=== PATIENT | male | born 1980 | race Caucasian/White ===

== ENCOUNTER 2018-03-02 07:59 | Emergency (ER) | payer MEDICAID ==
[~2018-03-02] VITALS: Ht 175.3 cm; Wt 99.8 kg
[2018-03-02 08:04] VITALS: BP_SYST 110
--- NOTE | 2018-03-02 08:09 | NUR ---
Pt placed to ER bed 08.
--- NOTE | 2018-03-02 08:10 | NUR ---
Pt complains of right eye swelling and a bump to cheek bone. Pt states he noticed a bump about three days ago and after he showered, "thick white drainage came out and then it changed to clear liquid." Per patient, the next day eye was swollen and difficult to open. Pt denies N/V or fever. No other injuries/complaints per patient or noted.
--- NOTE | 2018-03-02 08:16 | NUR ---
ER Dr. Botello at bedside examining patient.
[2018-03-02 08:35] VITALS: BP_SYST 110
--- NOTE | 2018-03-02 08:35 | NUR ---
Patient given written and verbal discharge instructions and verbalizes understanding. ER MD discussed with patient the results and treatment provided. Patient in stable condition. ID arm band removed. Rx of Bactrim given. Patient educated on pain management and to follow up with PMD. Pain Scale 0. Opportunity for questions provided and answered. Medication side effect fact sheet provided.
== END 2018-03-02 08:35 | disposition home or self-care (01) ==
LOC: SED 07:59
DX: H05.011 Cellulitis of right orbit (principal)
CPT/HCPCS: 99283

== ENCOUNTER 2022-05-13 09:14 | Inpatient (IN) | payer MEDICAID, OTHER ==
[~2022-05-13] VITALS: Ht 175.3 cm; Wt 98.0 kg
[2022-05-13 09:30] VITALS: BP_SYST 134
[2022-05-13] MEDS ORDERED: ONDANSETRON 4 MG ODT TAB PO ONE (10:30)
[2022-05-13 11:06] LABS: BASOPHILS # (AUTO) 0.1 K/uL (0.0-0.2); BASOPHILS % (AUTO) 0.2 % (0.0-2.0); HEMATOCRIT 50.4 % (36-54); LYMPHOCYTES # (AUTO) 1.4 K/uL (1.0-5.5); LYMPHOCYTES % (AUTO) 6.4 % (20.5-51.5); MEAN CORPUSCULAR HEMOGLOBIN 32 pg (27-31); MEAN CORPUSCULAR HGB CONC 36 % (32-36); MEAN CORPUSCULAR VOLUME 91 fL (79.0-98.0); MONOCYTES # (AUTO) 1.4 K/uL (0.0-1.0); MONOCYTES % (AUTO) 6.5 % (1.7-9.3); NEUTROPHILS # (AUTO) 18.7 K/uL (1.8-7.7); PLATELET COUNT (AUTO) 299 K/uL (130-430); RED BLOOD CELL COUNT(AUTO) 5.55 MIL/uL (4.2-6.2); RED CELL DISTRIBUTION WIDTH 13.8 % (9.0-15.0); WHITE BLOOD COUNT (AUTO) 21.5 K/uL (4.8-10.8)
[2022-05-13 11:33] LABS: CALCIUM 11.3 mg/dL (8.4-11.0); CREATININE 6.42 mg/dL (0.55-1.30); POTASSIUM 4.2 mmol/L (3.5-5.1)
[2022-05-13 11:49] LABS: ALBUMIN 6.3 g/dL (3.4-4.8); TOTAL BILIRUBIN 2.1 mg/dL (0.0-1.0)
[2022-05-13 12:05] LABS: NEUTROPHILS % (AUTO) 86.9 % (40.0-70.0)
[2022-05-13] MEDS ORDERED: NACL 0.9% 1,000 ML IV ONE (12:30)
[2022-05-13] MEDS ORDERED: ONDANSETRON HCL 4 MG/2 ML VIAL IVP ONE (12:45)
[2022-05-13] MEDS ORDERED: MAGNESIUM SULFATE 50 ML IV ONE (13:00)
[2022-05-13] MEDS ORDERED: HALOPERIDOL LACTATE 5 MG/ML VIAL IVP ONE (13:00)
[2022-05-13] MEDS ORDERED: FOLIC ACID 1 MG, THIAMINE HCL 100 MG, MAGNESIUM SULFATE 1 GM, MVI 10 ML in NACL 0.9% 1,... IV ONE (13:00)
[2022-05-13] MEDS ORDERED: PIPERACILLIN/TAZOBACTAM 2.25 GM in NS 50 ML IV ONE (13:00)
[2022-05-13] MEDS ORDERED: PIPERACILLIN/TAZOBACTAM 2.25 GM VIAL IV ONE (13:09)
[2022-05-13] MEDS ORDERED: FOLIC ACID 1 MG, MVI 10 ML in NACL 0.9% 1,000 ML IV ONE (13:15)
[2022-05-13] MEDS ORDERED: THIAMINE HCL 100 MG, MAGNESIUM SULFATE 1 GM in NS 100 ML IV ONE (13:15)
[2022-05-13 13:32] LABS: PHOSPHORUS 4.7 mg/dL (2.7-4.5)
[2022-05-13 13:35] LABS: ACETAMINOPHEN < 1 ug/mL (1-30); ALCOHOL, BLOOD < 3 mg/dL (<10)
[2022-05-13] MEDS ORDERED: MUPIROCIN 2% TOPICAL OINTMENT 22 GM NS PRN (15:00)
[2022-05-13] MEDS ORDERED: MORPHINE 2 MG/ML INJ. SYRINGE IVP PRN ×2 (15:00)
[2022-05-13] MEDS ORDERED: ACETAMINOPHEN 325 MG TABLET PO PRN (15:00)
[2022-05-13] MEDS ORDERED: DOCUSATE SODIUM 100 MG CAPSULE PO PRN (15:00)
[2022-05-13] MEDS ORDERED: POTASSIUM CHLORIDE 20 MEQ TAB.PRT.SR PO PRN (15:00)
[2022-05-13] MEDS ORDERED: MAGNESIUM SULFATE 50 ML IV PRN (15:00)
[2022-05-13] MEDS: NACL 0.9% 1,000 ML IV SCH ×2 (15:06→22:30)
[2022-05-13] MEDS: PIPERACILLIN/TAZO 2.25G/DEX-IS 50 ML IV SCH (18:00)
[2022-05-13 20:00] VITALS: BP_SYST 132
[2022-05-13 20:54] LABS: BILIRUBIN,URINE 1+ (NEGATIVE); BLOOD, URINE 3+ (NEGATIVE); CLARITY/URINE SL CLOUDY (CLEAR); COLOR,URINE YELLOW (YELLOW); GLUCOSE,URINE NEGATIVE (NEGATIVE); KETONES,URINE TRACE (NEGATIVE); LEUKOCYTE ESTERASE ,URINE NEGATIVE (NEGATIVE); NITRITE, URINE NEGATIVE (NEGATIVE); PH,URINE 5.5 (5.0-8.0); PROTEIN URINE 2+ (NEGATIVE); UROBILINOGEN,URINE 0.2 (0.2-1.0)
[2022-05-13 21:00] LABS: BARBITURATE, URINE NEGATIVE (NEG <=200); BENZODIAZEPINE, URINE NEGATIVE (NEG <=150); CANNABINOID, URINE POSITIVE (NEG <=50); COCAINE, URINE NEGATIVE (NEG <=150); METHAMPHETAMINES SCREEN,URINE NEGATIVE (NEG <=500); OPIATE, URINE NEGATIVE (NEG <=100); PHENCYCLIDINE SCREEN,URINE NEGATIVE (NEG <=25); UR TRICYCLIC ANTIDEPRESSANTS NEGATIVE (NEG <=300); URINE AMPHETAMINE NEGATIVE (NEG <=500); URINE METHADONE NEGATIVE (NEG <=200); URINE OXYCODONE SCREEN NEGATIVE (NEG <=100); URINE PROPOXYPHENE SCREEN NEGATIVE (NEG <=300)
[2022-05-13 21:11] LABS: BACTERIA,URINE RARE /HPF (None Seen); COARSE GRANULAR CASTS,URINE 0-10 /LPF (None Seen); HYALINE CASTS, URINE 0-10 /LPF (None Seen); MUCUS,URINE 1+ /LPF (None Seen)
[2022-05-13 21:12] LABS: CALCIUM OXALATE CRYSTALS,UR 0-10 /HPF (None Seen)
[2022-05-14] VITALS: BP_SYST 135
[2022-05-14] MEDS: PIPERACILLIN/TAZO 2.25G/DEX-IS 50 ML IV SCH ×4 (00:28→17:16)
[2022-05-14] MEDS: NACL 0.9% 1,000 ML IV SCH ×3 (06:33→22:30)
[2022-05-14 06:59] LABS: BASOPHILS % (AUTO) 0.1 % (0.0-2.0); EOSINOPHILS % (AUTO) 0.1 % (0.0-4.0); HEMATOCRIT 41.9 % (36-54); HEMOGLOBIN 14.4 g/dL (14.0-18.0); LYMPHOCYTES # (AUTO) 1.4 K/uL (1.0-5.5); LYMPHOCYTES % (AUTO) 9.6 % (20.5-51.5); MEAN CORPUSCULAR HEMOGLOBIN 32 pg (27-31); MEAN CORPUSCULAR HGB CONC 35 % (32-36); MEAN CORPUSCULAR VOLUME 93 fL (79.0-98.0); MONOCYTES # (AUTO) 1.4 K/uL (0.0-1.0); MONOCYTES % (AUTO) 9.5 % (1.7-9.3); NEUTROPHILS # (AUTO) 11.5 K/uL (1.8-7.7); NEUTROPHILS % (AUTO) 80.7 % (40.0-70.0); PLATELET COUNT (AUTO) 216 K/uL (130-430); RED CELL DISTRIBUTION WIDTH 13.7 % (9.0-15.0); WHITE BLOOD COUNT (AUTO) 14.2 K/uL (4.8-10.8)
[2022-05-14 07:27] LABS: CALCIUM 9.1 mg/dL (8.4-11.0); CREATININE 3.33 mg/dL (0.55-1.30); POTASSIUM 4.2 mmol/L (3.5-5.1)
[2022-05-14 11:46] LABS: BILIRUBIN,URINE NEGATIVE (NEGATIVE); BLOOD, URINE 2+ (NEGATIVE); CLARITY/URINE CLEAR (CLEAR); COLOR,URINE YELLOW (YELLOW); GLUCOSE,URINE NEGATIVE (NEGATIVE); KETONES,URINE NEGATIVE (NEGATIVE); LEUKOCYTE ESTERASE ,URINE NEGATIVE (NEGATIVE); NITRITE, URINE NEGATIVE (NEGATIVE); PROTEIN URINE 1+ (NEGATIVE); UROBILINOGEN,URINE 0.2 (0.2-1.0)
[2022-05-14 12:20] VITALS: BP_SYST 139
[2022-05-14 12:21] LABS: BACTERIA,URINE None Seen /HPF (None Seen); WBC,URINE 0-3 /HPF (0-3)
[2022-05-14 15:56] VITALS: BP_SYST 136
[2022-05-14] MEDS: ONDANSETRON HCL 4 MG/2 ML VIAL IVP PRN (17:10)
[2022-05-14] MEDS: LORazepam 2 MG/ML VIAL IVP PRN (17:16)
[2022-05-14 20:00] VITALS: BP_SYST 117
[2022-05-15] VITALS: BP_SYST 116
[2022-05-15] MEDS: PIPERACILLIN/TAZO 2.25G/DEX-IS 50 ML IV SCH ×3 (00:45→12:22)
[2022-05-15] MEDS: LORazepam 2 MG/ML VIAL IVP PRN (05:33)
[2022-05-15 06:50] LABS: BASOPHILS % (AUTO) 0.5 % (0.0-2.0); EOSINOPHILS # (AUTO) 0.1 K/uL (0.0-0.4); EOSINOPHILS % (AUTO) 0.8 % (0.0-4.0); HEMATOCRIT 42.2 % (36-54); HEMOGLOBIN 14.6 g/dL (14.0-18.0); LYMPHOCYTES # (AUTO) 1.5 K/uL (1.0-5.5); LYMPHOCYTES % (AUTO) 18.7 % (20.5-51.5); MEAN CORPUSCULAR HEMOGLOBIN 32 pg (27-31); MEAN CORPUSCULAR HGB CONC 35 % (32-36); MEAN CORPUSCULAR VOLUME 93 fL (79.0-98.0); MONOCYTES # (AUTO) 1.1 K/uL (0.0-1.0); NEUTROPHILS # (AUTO) 5.5 K/uL (1.8-7.7); PLATELET COUNT (AUTO) 206 K/uL (130-430); RED BLOOD CELL COUNT(AUTO) 4.52 MIL/uL (4.2-6.2); RED CELL DISTRIBUTION WIDTH 13.5 % (9.0-15.0); WHITE BLOOD COUNT (AUTO) 8.2 K/uL (4.8-10.8)
[2022-05-15 07:36] LABS: CALCIUM 9.7 mg/dL (8.4-11.0); CREATININE 1.47 mg/dL (0.55-1.30); TOTAL BILIRUBIN 2.8 mg/dL (0.0-1.0)
[2022-05-15 08:03] VITALS: BP_SYST 134
[2022-05-15] MEDS: ONDANSETRON HCL 4 MG/2 ML VIAL IVP PRN (11:13)
[2022-05-15 11:24] VITALS: BP_SYST 120
[2022-05-15 12:47] VITALS: BP_SYST 134
[2022-05-15 15:23] VITALS: BP_SYST 130
[2022-05-17 08:06] LABS: A/G RATIO 1.1 (0.7-1.7); ALBUMIN 3.8 g/dL (2.9-4.4); ALPHA-1-GLOBULIN 0.3 g/dL (0.0-0.4); BETA GLOBULIN 1.3 g/dL (0.7-1.3); GLOBULIN, TOTAL 3.6 g/dL (2.2-3.9); M-SPIKE Not Observed g/dL (Not Observed)
[2022-05-17 12:07] LABS: VIT D,1, 25-DIHYDROXY 36.8 pg/mL (24.8-81.5)
[2022-05-17 14:06] LABS: PTH, INTACT 55 pg/mL (15-65)
== END 2022-05-15 12:00 | disposition home or self-care (01) | DRG 640 ==
LOC: SED 09:14 → STU 14:29
PROVIDERS: ADMIT Family Medicine; ATTEND Family Medicine
DX: E86.0 Dehydration (principal); N17.0 Acute kidney failure with tubular necrosis; R65.11 Systemic inflammatory response syndrome (SIRS) of non-infectious origin with acute organ dysfunction; E83.52 Hypercalcemia; F12.90 Cannabis use, unspecified, uncomplicated; E87.1 Hypo-osmolality and hyponatremia; E83.41 Hypermagnesemia; Z20.822 Contact with and (suspected) exposure to COVID-19
CPT/HCPCS: 36415; 71045; 74018; 76376; 76770; 80048; 80053; 80307; 81000; 82306; 82435; 82550; 82570; 83519; 83605; 83690; 83735; 83970; 84100; 84155; 84165; 84302; 85025; 86480; 87040; 96365; 96368; 96375; 99291; G0378; G0480; G0481; G0482; J1630; J2060; J2405; J2543; J3411; J3475; J3490; J7030

== ENCOUNTER 2022-10-03 20:01 | Emergency (ER) | payer OTHER ==
[2022-10-03 20:10] VITALS: BP_SYST 126
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
--- NOTE | 2022-10-03 20:10 | NUR ---
Patient triaged and placed in bed 6 in ED. Patient VSS and appears in no distress at this time. Patient accompanied by father, MD Longoria notified of need for MSE.
--- NOTE | 2022-10-03 20:26 | NUR ---
ER at bedside examining patient.
[2022-10-03] MEDS ORDERED: MORPHINE 4 MG INJ. 4 MG/ML VIAL IVP ONE (20:45)
[2022-10-03 21:09] LABS: BASOPHILS % (AUTO) 0.4 % (0.0-2.0); EOSINOPHILS # (AUTO) 0.1 K/uL (0.0-0.4); EOSINOPHILS % (AUTO) 0.8 % (0.0-4.0); HEMATOCRIT 43.8 % (36-54); HEMOGLOBIN 14.9 g/dL (14.0-18.0); LYMPHOCYTES # (AUTO) 1.7 K/uL (1.0-5.5); LYMPHOCYTES % (AUTO) 21.9 % (20.5-51.5); MEAN CORPUSCULAR HEMOGLOBIN 32 pg (27-31); MEAN CORPUSCULAR HGB CONC 34 % (32-36); MEAN CORPUSCULAR VOLUME 94 fL (79.0-98.0); MONOCYTES # (AUTO) 0.5 K/uL (0.0-1.0); MONOCYTES % (AUTO) 6.1 % (1.7-9.3); NEUTROPHILS # (AUTO) 5.5 K/uL (1.8-7.7); NEUTROPHILS % (AUTO) 70.8 % (40.0-70.0); PLATELET COUNT (AUTO) 216 K/uL (130-430); RED BLOOD CELL COUNT(AUTO) 4.64 MIL/uL (4.2-6.2); RED CELL DISTRIBUTION WIDTH 13.7 % (9.0-15.0); WHITE BLOOD COUNT (AUTO) 7.7 K/uL (4.8-10.8)
[2022-10-03 21:16] LABS: CALCIUM 8.9 mg/dL (8.4-11.0); CREATININE 1.36 mg/dL (0.55-1.30)
[2022-10-03 21:18] LABS: PROTHROMBIN TIME 10.6 SECS (9.5-12.5)
[2022-10-03 21:21] LABS: ALBUMIN 4.3 g/dL (3.4-4.8); TOTAL BILIRUBIN 1.1 mg/dL (0.0-1.0)
[2022-10-03] MEDS ORDERED: iohexoL 350 mgI/mL, 100 ML INFUS..BTL IV ONE (22:03)
[2022-10-03] MEDS ORDERED: MORPHINE 4 MG INJ. 4 MG/ML VIAL ONE (23:38)
--- NOTE | 2022-10-04 01:21 | NUR ---
Patient given written and verbal discharge instructions and verbalizes understanding. ER MD discussed with patient the results and treatment provided. Patient in stable condition. ID arm band removed. IV catheter removed intact and dressing applied, no active bleeding. no Rx of given. Patient educated on pain management and to follow up with PMD. Pain Scale 5/10. Opportunity for questions provided and answered. Medication side effect fact sheet provided.
[2022-10-04 01:24] VITALS: BP_SYST 127
== END 2022-10-04 01:54 | disposition home or self-care (01) ==
LOC: SED 20:01
DX: S00.81XA Abrasion of other part of head, initial encounter (principal); R07.89 Other chest pain; Z79.899 Other long term (current) drug therapy; V49.40XA Driver injured in collision with unspecified motor vehicles in traffic accident, initial encounter; Y93.89 Activity, other specified; Y92.89 Other specified places as the place of occurrence of the external cause; Y99.8 Other external cause status
CPT/HCPCS: 99285; 70450; 96374; 80053; 85025; 85610; 85730; 86886; 86900; 86901; 36415; 71275; 74175; 72191; 72125; 76376; G0482; Q9967; J2270